=== PATIENT | female | born 1945 | race Caucasian/White ===

== ENCOUNTER 2017-12-14 10:09 | Inpatient (IN) | payer MEDICARE ==
[2017-12-14] MEDS ORDERED: SODIUM CHLORIDE 0.9% 1,000 ML IV STA (10:33)
[2017-12-14] MEDS ORDERED: RX INFO: IV CONTRAST WAS GIVEN 1 EACH MISC MISCELLANE PRN (10:33)
[2017-12-14] MEDS ORDERED: ACETAMINOPHEN IV (For NPO) 1,000 MG in EMPTY BAG 1 BAG IVPB STA (10:34)
--- NOTE | 2017-12-14 10:36 | ED ---
General Adult HPI - General Chief complaint: Abdominal Pain Stated complaint: right lower abdominal pain Time Seen by Provider: 12/14/17 10:29 Source: patient, RN notes reviewed Mode of arrival: ambulatory Limitations: no limitations - History of Present Illness Initial comments: Patient is a pleasant 72-year-old female presenting to the emergency department with abdominal discomfort. Onset was yesterday afternoon. Symptoms have progressively worsened since that time. Discomfort did start in the periumbilical region however now more in his right lower quadrant. Patient has loss of appetite. No nausea or vomiting. Patient does feel somewhat warm. No history of some her symptoms previously. No constipation or diarrhea. No dysuria or hematuria. Patient states positions do not change the discomfort. Patient states walking and bumps during car ride did bother her. - Related Data Home Medications Medication Instructions Recorded Confirmed Acetaminophen [Tylenol] 325 mg PO HS PRN 11/17/15 12/14/17 Aspirin [Adult Low Dose Aspirin EC] 162 mg PO DAILY 11/17/15 12/14/17 Budesonide [Pulmicort] 0.25 mg INHALATION RT-DAILY 11/17/15 12/14/17 Famotidine 40 mg PO HS 11/17/15 12/14/17 Loratadine [Claritin] 10 mg PO QAM 11/17/15 12/14/17 Multivitamins, Thera [Multivitamin] 1 tab PO DAILY 11/17/15 12/14/17 Zafirlukast [Accolate] 20 mg PO QAM 11/17/15 12/14/17 diphenhydrAMINE [Benadryl] 25 mg PO HS PRN 11/17/15 12/14/17 Calcium Carbonate/Vitamin D3 1 tab PO DAILY 12/14/17 12/14/17 [Calcium 500-Vit D3 200 Tablet] Allergies Allergy/AdvReac Type Severity Reaction Status Date / Time egg Allergy Rash/Hives Verified 12/14/17 11:30 naproxen Allergy Rash/Hives. Verified 12/14/17 11:30 SNYCOPE. VOMITING. peanut Allergy Rash/Hives Verified 12/14/17 11:30 Penicillins Allergy Rash/Hives Verified 12/14/17 11:30 strawberry Allergy Rash/Hives Verified 12/14/17 11:30 tomato Allergy Rash/Hives Verified 12/14/17 11:30 Review of Systems ROS Statement: Those systems with pertinent positive or pertinent negative responses have been documented in the HPI. ROS Other: All systems not noted in ROS Statement are negative. Constitutional: Reports: other (Patient feels warm) Eyes: Denies: eye pain ENT: Denies: ear pain Respiratory: Denies: cough Cardiovascular: Denies: chest pain Endocrine: Denies: fatigue Gastrointestinal: Reports: abdominal pain. Denies: nausea, vomiting, diarrhea, constipation Genitourinary: Denies: dysuria, hematuria Musculoskeletal: Denies: back pain Skin: Denies: rash Neurological: Reports: headache (Patient admits she does have a mild headache.) Past Medical History Past Medical History: Asthma, Cancer, COPD, Osteoarthritis (OA) Additional Past Medical History / Comment(s): BREAST CANCER LEFT. ALLERGIES History of Any Multi-Drug Resistant Organisms: None Reported Past Surgical History: Breast Surgery, Tonsillectomy Additional Past Surgical History / Comment(s): LEFT LUMPECTOMY. SINUS SURGERY. Past Anesthesia/Blood Transfusion Reactions: No Reported Reaction Past Psychological History: No Psychological Hx Reported Smoking Status: Never smoker Past Alcohol Use History: Rare Past Drug Use History: None Reported General Exam Limitations: no limitations General appearance: alert, in no apparent distress Head exam: Present: atraumatic Eye exam: Present: normal appearance, PERRL ENT exam: Present: normal oropharynx Neck exam: Present: normal inspection. Absent: meningismus Respiratory exam: Present: normal lung sounds bilaterally Cardiovascular Exam: Present: regular rate, normal rhythm GI/Abdominal exam: Present: soft, tenderness (Moderate tenderness right lower quadrant. Mild tenderness in the suprapubic and periumbilical region.), normal bowel sounds. Absent: distended, guarding, rebound, rigid, pulsatile mass Extremities exam: Present: normal inspection Neurological exam: Present: alert Psychiatric exam: Present: normal affect, normal mood Skin exam: Present: normal color Course Vital Signs 12/14/17 12/14/17 10:20 11:21 Temperature 99.6 F Pulse Rate 87 76 Respiratory 18 18 Rate Blood Pressure 144/67 126/68 O2 Sat by Pulse 98 100 Oximetry - Reevaluation(s) Reevaluation #1: 12/14/17 12:36 Patient does not meet sepsis criteria EKG Findings - EKG Comments: EKG Findings:: EKG shows normal sinus rhythm 76. MO 174. QRS 88. QT 384. QTC 432. Normal axis. Normal QRS. No acute ST change. Medical Decision Making - Medical Decision Making Patient reevaluated and resting comfortably in bed. Patient was updated on results and plan. Case was discussed in detail with Dr. Amaral, who will admit for Dr. Torre. He does request antibiotics. - Lab Data Result diagrams: 12/14/17 10:45 12/14/17 10:45 Lab Results 12/14/17 12/14/17 12/14/17 Range/Units 10:45 10:45 10:45 WBC 13.4 H (3.8-10.6) k/uL RBC 4.43 (3.80-5.40) m/uL Hgb 13.1 (11.4-16.0) gm/dL Hct 39.5 (34.0-46.0) % MCV 89.4 (80.0-100.0) fL MCH 29.6 (25.0-35.0) pg MCHC 33.2 (31.0-37.0) g/dL RDW 12.6 (11.5-15.5) % Plt Count 216 (150-450) k/uL Neutrophils % 77 % Lymphocytes % 16 % Monocytes % 5 % Eosinophils % 1 % Basophils % 0 % Neutrophils # 10.2 H (1.3-7.7) k/uL Lymphocytes # 2.1 (1.0-4.8) k/uL Monocytes # 0.7 (0-1.0) k/uL Eosinophils # 0.2 (0-0.7) k/uL Basophils # 0.0 (0-0.2) k/uL PT (9.0-12.0) sec INR (<1.2) APTT (22.0-30.0) sec Sodium 140 (137-145) mmol/L Potassium 3.8 (3.5-5.1) mmol/L Chloride 105 (98-107) mmol/L Carbon Dioxide 27 (22-30) mmol/L Anion Gap 8 mmol/L BUN 14 (7-17) mg/dL Creatinine 0.80 (0.52-1.04) mg/dL Est GFR (MDRD) Af Amer >60 (>60 ml/min/1.73 sqM) Est GFR (MDRD) Non-Af >60 (>60 ml/min/1.73 sqM) Glucose 108 H (74-99) mg/dL Plasma Lactic Acid Danny (0.7-2.0) mmol/L Calcium 8.9 (8.4-10.2) mg/dL Total Bilirubin 0.9 (0.2-1.3) mg/dL AST 18 (14-36) U/L ALT 35 (9-52) U/L Alkaline Phosphatase 55 (38-126) U/L Total Protein 6.1 L (6.3-8.2) g/dL Albumin 3.6 (3.5-5.0) g/dL Amylase 40 (30-110) U/L Lipase 35 (23-300) U/L Urine Color Urine Appearance (Clear) Urine pH (5.0-8.0) Ur Specific [place] (1.001-1.035) Urine Protein (Negative) Urine Glucose (UA) (Negative) Urine Ketones (Negative) Urine Blood (Negative) Urine Nitrite (Negative) Urine Bilirubin (Negative) Urine Urobilinogen (<2.0) mg/dL Ur Leukocyte Esterase (Negative) Influenza Type A RNA Not Detected (Not Detectd) Influenza Type B (PCR) Not Detected (Not Detectd) 12/14/17 12/14/17 12/14/17 Range/Units 10:45 10:45 10:45 WBC (3.8-10.6) k/uL RBC (3.80-5.40) m/uL Hgb (11.4-16.0) gm/dL Hct (34.0-46.0) % MCV (80.0-100.0) fL MCH (25.0-35.0) pg MCHC (31.0-37.0) g/dL RDW (11.5-15.5) % Plt Count (150-450) k/uL Neutrophils % % Lymphocytes % % Monocytes % % Eosinophils % % Basophils % % Neutrophils # (1.3-7.7) k/uL Lymphocytes # (1.0-4.8) k/uL Monocytes # (0-1.0) k/uL Eosinophils # (0-0.7) k/uL Basophils # (0-0.2) k/uL PT 10.7 (9.0-12.0) sec INR 1.1 (<1.2) APTT 24.1 (22.0-30.0) sec Sodium (137-145) mmol/L Potassium (3.5-5.1) mmol/L Chloride (98-107) mmol/L Carbon Dioxide (22-30) mmol/L Anion Gap mmol/L BUN (7-17) mg/dL Creatinine (0.52-1.04) mg/dL Est GFR (MDRD) Af Amer (>60 ml/min/1.73 sqM) Est GFR (MDRD) Non-Af (>60 ml/min/1.73 sqM) Glucose (74-99) mg/dL Plasma Lactic Acid Danny 0.8 (0.7-2.0) mmol/L Calcium (8.4-10.2) mg/dL Total Bilirubin (0.2-1.3) mg/dL AST (14-36) U/L ALT (9-52) U/L Alkaline Phosphatase (38-126) U/L Total Protein (6.3-8.2) g/dL Albumin (3.5-5.0) g/dL Amylase (30-110) U/L Lipase (23-300) U/L Urine Color Yellow Urine Appearance Clear (Clear) Urine pH 6.5 (5.0-8.0) Ur Specific [place] 1.016 (1.001-1.035) Urine Protein Negative (Negative) Urine Glucose (UA) Negative (Negative) Urine Ketones Negative (Negative) Urine Blood Negative (Negative) Urine Nitrite Negative (Negative) Urine Bilirubin Negative (Negative) Urine Urobilinogen <2.0 (<2.0) mg/dL Ur Leukocyte Esterase Negative (Negative) Influenza Type A RNA (Not Detectd) Influenza Type B (PCR) (Not Detectd) - Radiology Data Radiology results: report reviewed (Computed tomography scan concerning for appendicitis.) Disposition Clinical Impression: Acute appendicitis Disposition: ADMITTED IP TO THIS [facility] Referrals: Ck Rodrigues MD [Primary Care Provider] - 1-2 days Decision Time: 12:36
[2017-12-14 11:03] LABS: Basophils % (A) 0 %; Eosinophils # (A) 0.2 k/uL (0-0.7); Eosinophils % (A) 1 %; HCT 39.5 % (34.0-46.0); HGB 13.1 gm/dL (11.4-16.0); Lymphocytes # (A) 2.1 k/uL (1.0-4.8); Lymphocytes % (A) 16 %; MCH 29.6 pg (25.0-35.0); MCHC 33.2 g/dL (31.0-37.0); MCV 89.4 fL (80.0-100.0); Mean Platelet Volume 6.9; Monocytes # (A) 0.7 k/uL (0-1.0); Monocytes % (A) 5 %; Neutrophils # (A) 10.2 k/uL (1.3-7.7); Neutrophils % (A) 77 %; Platelet Count 216 k/uL (150-450); RBC 4.43 m/uL (3.80-5.40); RDW 12.6 % (11.5-15.5); WBC 13.4 k/uL (3.8-10.6)
[2017-12-14 11:04] LABS: Appearance,Urine Clear (Clear); Bilirubin,Urine Negative (Negative); Blood,Urine Negative (Negative); Color,Urine Yellow; Glucose,Urine (UA) Negative (Negative); Ketones,Urine Negative (Negative); Leukocyte Esterase,Urine Negative (Negative); Nitrite,Urine Negative (Negative); PH, Urine 6.5 (5.0-8.0); Protein,Urine Negative (Negative); Specific Gravity,Urine 1.016 (1.001-1.035); Urobilinogen,Urine <2.0 mg/dL (<2.0)
[2017-12-14 11:16] LABS: ALT 35 U/L (9-52); AST 18 U/L (14-36); Albumin 3.6 g/dL (3.5-5.0); Alkaline Phosphatase 55 U/L (38-126); Amylase 40 U/L (30-110); Anion Gap 8 mmol/L; Blood Urea Nitrogen 14 mg/dL (7-17); Calcium 8.9 mg/dL (8.4-10.2); Carbon Dioxide 27 mmol/L (22-30); Chloride 105 mmol/L (98-107); Glucose 108 mg/dL (74-99); Lipase 35 U/L (23-300); Potassium 3.8 mmol/L (3.5-5.1); Sodium 140 mmol/L (137-145); Total Bilirubin 0.9 mg/dL (0.2-1.3); Total Protein 6.1 g/dL (6.3-8.2)
[2017-12-14 11:27] LABS: INR 1.1 (<1.2); Partial Thromboplastin Time 24.1 sec (22.0-30.0); Prothrombin Time 10.7 sec (9.0-12.0)
--- NOTE | 2017-12-14 12:03 | CT ---
EXAMINATION TYPE: CT abdomen pelvis w con DATE OF EXAM: 12/14/2017 REFERENCE: NONE HISTORY: abdominal pain HISTORY: Left sided Abdominal pain fro 2 days with fever REFERENCE: NONE CT DLP: 532.1 mGy Automated exposure control for dose reduction was used. TECHNIQUE: Helical acquisition through the abdomen and pelvis was obtained following the oral ingesti on of without Oral Contrast and following intravenous administration of 100 mL of Omnipaque 300. The data was reformatted in axial, coronal and sagittal projections. FINDINGS: Visualized portions of the lungs are clear. There is no pleural or pericardial fluid. The heart is mildly enlarged. Within the abdomen, the liver, spleen and gallbladder are normal. There is a small hiatal hernia. Both adrenal glands appear normal. The pancreas is unremarkable. There is a simple appearing 2.3 cm cyst involving the mid polar region of the right kidney. The left kidney appears normal. There is no significant retroperitoneal, iliac or inguinal adenopathy. The bladder is unremarkable. The uterus and ovaries have a normal appearance. There are scattered diverticula throughout the sigmoid colon. I do not see radiographic evidence of d iverticulitis. The appendix is swollen measuring 9.5 mm. There is adjacent inflammatory change. There is no evidence of perforation or abscess formation. There is evidence of mucosal thickening in the sigmoid colon an d also areas within the descending colon. Small bowel loops are normal in caliber. There is no free fluid and no free air identified. IMPRESSION: 1. FINDINGS MOST CONSISTENT WITH ACUTE APPENDICITIS. 2. UNCOMPLICATED DIVERTICULAR CHANGE INVOLVING THE SIGMOID COLON. 3. AREAS OF MUCOSAL THICKENING INVOLVING THE SIGMOID COLON WITH SKIP AREAS IN THE DESCENDING COLON. P LEASE CORRELATE FOR COLITIS. 4. SMALL HIATAL HERNIA. 5. SIMPLE APPEARING RIGHT RENAL CYST.
[2017-12-14] MEDS ORDERED: ONDANSETRON 4 MG/2 ML VIAL IVP PRN (12:36)
[2017-12-14] MEDS ORDERED: MORPHINE SULFATE 4 MG/ML SYRINGE IV PRN (12:36)
[2017-12-14] MEDS ORDERED: NALOXONE 0.4 MG/ML 1 ML VIAL IV PRN (12:36)
[2017-12-14] MEDS: LEVOFLOXACIN 750MG-D5W PMX 750 MG in DEXTROSE/WATER 1 150ML.BAG IVPB SCH (13:29)
[2017-12-14] MEDS: metroNIDAZOLE-NS PMX 500 MG in SALINE 1 100ML.BAG IVPB SCH ×2 (15:02→23:16)
[2017-12-14] MEDS ORDERED: ACETAMINOPHEN TAB 325 MG TAB PO PRN (17:58)
[2017-12-14] MEDS: SODIUM CHLORIDE 0.9% 1,000 ML IV SCH ×2 (23:16→23:20)
[2017-12-15] MEDS ORDERED: BUPIVACAINE (PF) 0.25% 30 ML VIAL SQ ONE (07:13)
[2017-12-15] MEDS ORDERED: MIDAZOLAM 2 MG/2 ML VIAL ONE (07:17)
[2017-12-15] MEDS ORDERED: fentaNYL (PF) 50 MCG/ML 2 ML AMP ONE (07:17)
[2017-12-15] MEDS ORDERED: IV FLUID CONTINUATION 300 ML IV ONE (07:17)
[2017-12-15] MEDS ORDERED: PROPOFOL 10 MG/ML 20 ML VIAL IV ONE (07:17)
[2017-12-15] MEDS ORDERED: HEPARIN SODIUM,PORCINE 5,000 UNIT/ML 1 ML VIAL ONE (07:17)
[2017-12-15] MEDS ORDERED: ROCURONIUM BROMIDE 10 MG/ML 10 ML VIAL IV ONE (07:17)
[2017-12-15] MEDS ORDERED: DEXAMETHASONE SOD PHOS (MDV) 100 MG/10 ML VIAL ONE (07:17)
[2017-12-15] MEDS ORDERED: KETOROLAC 30 MG/ML 1 ML VIAL ONE (07:17)
[2017-12-15] MEDS ORDERED: ONDANSETRON 4 MG/2 ML VIAL ONE (07:17)
[2017-12-15] MEDS ORDERED: SUCCINYLCHOLINE CHLORIDE 100 MG/5 ML SYR IV ONE (07:17)
--- NOTE | 2017-12-15 07:19 | P.GSHP ---
History of Present Illness H&P Date: 12/14/17 Chief Complaint: Right lower quadrant pain This a 72-year-old female who who was admitted through the emergency room with complaints of right lower quadrant pain. Patient was found have acute appendicitis. Patient admitted for laparoscopic appendectomy Past Medical History Past Medical History: Asthma, Cancer, COPD, Osteoarthritis (OA) Additional Past Medical History / Comment(s): BREAST CANCER LEFT. ALLERGIES History of Any Multi-Drug Resistant Organisms: None Reported Past Surgical History: Breast Surgery, Tonsillectomy Additional Past Surgical History / Comment(s): LEFT LUMPECTOMY. SINUS SURGERY. Past Anesthesia/Blood Transfusion Reactions: No Reported Reaction Past Psychological History: No Psychological Hx Reported Smoking Status: Never smoker Past Alcohol Use History: Rare Past Drug Use History: None Reported Medications and Allergies Home Medications Medication Instructions Recorded Confirmed Type Acetaminophen [Tylenol] 325 mg PO HS PRN 11/17/15 12/14/17 History Aspirin [Adult Low Dose Aspirin EC] 162 mg PO DAILY 11/17/15 12/14/17 History Budesonide [Pulmicort] 0.25 mg INHALATION RT-DAILY 11/17/15 12/14/17 History Famotidine 40 mg PO HS 11/17/15 12/14/17 History Loratadine [Claritin] 10 mg PO QAM 11/17/15 12/14/17 History Multivitamins, Thera [Multivitamin] 1 tab PO DAILY 11/17/15 12/14/17 History Zafirlukast [Accolate] 20 mg PO QAM 11/17/15 12/14/17 History diphenhydrAMINE [Benadryl] 25 mg PO HS PRN 11/17/15 12/14/17 History Calcium Carbonate/Vitamin D3 1 tab PO DAILY 12/14/17 12/14/17 History [Calcium 500-Vit D3 200 Tablet] Allergies Allergy/AdvReac Type Severity Reaction Status Date / Time egg Allergy Rash/Hives Verified 12/14/17 11:30 naproxen Allergy Rash/Hives. Verified 12/14/17 11:30 SNYCOPE. VOMITING. peanut Allergy Rash/Hives Verified 12/14/17 11:30 Penicillins Allergy Rash/Hives Verified 12/14/17 11:30 strawberry Allergy Rash/Hives Verified 12/14/17 11:30 tomato Allergy Rash/Hives Verified 12/14/17 11:30 Surgical - Exam Vital Signs Temp Pulse Resp BP Pulse Ox 99.6 F 87 18 144/67 98 12/14/17 10:20 12/14/17 10:20 12/14/17 10:20 12/14/17 10:20 12/14/17 10:20 - General well developed, no distress - Eyes PERRL - ENT normal pinna - Neck no masses - Respiratory normal expansion - Cardiovascular Rhythm: regular - Abdomen Mild right lower quadrant tenderness Abdomen: soft Results - Labs 12/14/17 10:45 12/14/17 10:45 Abnormal Lab Results - Last 24 Hours (Table) 12/14/17 12/14/17 Range/Units 10:45 10:45 WBC 13.4 H (3.8-10.6) k/uL Neutrophils # 10.2 H (1.3-7.7) k/uL Glucose 108 H (74-99) mg/dL Total Protein 6.1 L (6.3-8.2) g/dL Diabetes panel 12/14/17 Range/Units 10:45 Sodium 140 (137-145) mmol/L Potassium 3.8 (3.5-5.1) mmol/L Chloride 105 (98-107) mmol/L Carbon Dioxide 27 (22-30) mmol/L BUN 14 (7-17) mg/dL Creatinine 0.80 (0.52-1.04) mg/dL Glucose 108 H (74-99) mg/dL Calcium 8.9 (8.4-10.2) mg/dL AST 18 (14-36) U/L ALT 35 (9-52) U/L Alkaline Phosphatase 55 (38-126) U/L Total Protein 6.1 L (6.3-8.2) g/dL Albumin 3.6 (3.5-5.0) g/dL Calcium panel 12/14/17 Range/Units 10:45 Calcium 8.9 (8.4-10.2) mg/dL Albumin 3.6 (3.5-5.0) g/dL Pituitary panel 12/14/17 Range/Units 10:45 Sodium 140 (137-145) mmol/L Potassium 3.8 (3.5-5.1) mmol/L Chloride 105 (98-107) mmol/L Carbon Dioxide 27 (22-30) mmol/L BUN 14 (7-17) mg/dL Creatinine 0.80 (0.52-1.04) mg/dL Glucose 108 H (74-99) mg/dL Calcium 8.9 (8.4-10.2) mg/dL Adrenal panel 12/14/17 Range/Units 10:45 Sodium 140 (137-145) mmol/L Potassium 3.8 (3.5-5.1) mmol/L Chloride 105 (98-107) mmol/L Carbon Dioxide 27 (22-30) mmol/L BUN 14 (7-17) mg/dL Creatinine 0.80 (0.52-1.04) mg/dL Glucose 108 H (74-99) mg/dL Calcium 8.9 (8.4-10.2) mg/dL Total Bilirubin 0.9 (0.2-1.3) mg/dL AST 18 (14-36) U/L ALT 35 (9-52) U/L Alkaline Phosphatase 55 (38-126) U/L Total Protein 6.1 L (6.3-8.2) g/dL Albumin 3.6 (3.5-5.0) g/dL Assessment and Plan Assessment: Acute appendicitis. We'll perform laparoscopic appendectomy
[2017-12-15] MEDS ORDERED: HYDROmorphone 0.5 MG/0.5 ML SYRINGE IVP PRN (07:56)
[2017-12-15] MEDS ORDERED: ONDANSETRON 4 MG/2 ML VIAL IVP PRN (07:56)
[2017-12-15] MEDS ORDERED: KETOROLAC 30 MG/ML 1 ML VIAL IVP PRN (07:56)
[2017-12-15] MEDS ORDERED: BENZOCAINE/MENTHOL LOZENG 1 EACH LOZENGE MUCOUS MEM PRN (07:56)
[2017-12-15] MEDS ORDERED: LACTATED RINGERS 1,000 ML IV ONE (07:58)
--- NOTE | 2017-12-15 08:00 | P.OP ---
Date of Procedure: 12/15/17 Preoperative Diagnosis: Acute appendicitis Postoperative Diagnosis: Acute appendicitis Procedure(s) Performed: Laparoscopic appendectomy Anesthesia: GETA Estimated Blood Loss (ml): 5 Pathology: other (Appendix) Condition: stable Disposition: PACU Description of Procedure: Harmonic appendectomy
[2017-12-15] MEDS: D5-0.45% NACL WITH KCL 20MEQ/L 1,000 ML IV SCH ×3 (09:44→21:31)
[2017-12-15] MEDS: metroNIDAZOLE-NS PMX 500 MG in SALINE 1 100ML.BAG IVPB SCH ×3 (09:44→23:24)
[2017-12-15] MEDS: HEPARIN SODIUM,PORCINE 5,000 UNIT/ML 1 ML VIAL SQ SCH ×3 (09:45→23:35)
[2017-12-15] MEDS: PANTOPRAZOLE 40 MG/10 ML VIAL IV SCH (09:48)
[2017-12-15] MEDS ORDERED: diphenhydrAMINE 25 MG CAP PO PRN (09:49)
[2017-12-15] MEDS ORDERED: ACETAMINOPHEN TAB 325 MG TAB PO PRN (09:49)
--- NOTE | 2017-12-15 10:01 | P.HPIM ---
History of Present Illness H&P Date: 12/15/17 Chief Complaint: Abdominal pain Kemi Vaughan is a 72-year-old female, patient of Dr Rodrigues presenting to the emergency department with abdominal discomfort. Onset was on Saturday afternoon. Symptoms have progressively worsened since that time. Discomfort did start in the periumbilical region however now more in his right lower quadrant. Patient has loss of appetite. No nausea or vomiting. Patient does feel somewhat warm. No history of same symptoms previously. No constipation or diarrhea. No frequency with urination no burning or urgency. Patient was evaluated in emergency room, white blood count was elevated at 13.4 computed tomography scan was compatible with acute appendicitis patient was seen by Dr. Ramírez and underwent laparoscopic appendectomy. Past Medical History Past Medical History: Asthma, Cancer, COPD, Osteoarthritis (OA) Additional Past Medical History / Comment(s): BREAST CANCER LEFT. ALLERGIES History of Any Multi-Drug Resistant Organisms: None Reported Past Surgical History: Breast Surgery, Tonsillectomy Additional Past Surgical History / Comment(s): LEFT LUMPECTOMY. SINUS SURGERY. Past Anesthesia/Blood Transfusion Reactions: No Reported Reaction Past Psychological History: No Psychological Hx Reported Smoking Status: Never smoker Past Alcohol Use History: Rare Past Drug Use History: None Reported Medications and Allergies Home Medications Medication Instructions Recorded Confirmed Type Acetaminophen [Tylenol] 325 mg PO HS PRN 11/17/15 12/14/17 History Aspirin [Adult Low Dose Aspirin EC] 162 mg PO DAILY 11/17/15 12/14/17 History Budesonide [Pulmicort] 0.25 mg INHALATION RT-DAILY 11/17/15 12/14/17 History Famotidine 40 mg PO HS 11/17/15 12/14/17 History Loratadine [Claritin] 10 mg PO QAM 11/17/15 12/14/17 History Multivitamins, Thera [Multivitamin] 1 tab PO DAILY 11/17/15 12/14/17 History Zafirlukast [Accolate] 20 mg PO QAM 11/17/15 12/14/17 History diphenhydrAMINE [Benadryl] 25 mg PO HS PRN 11/17/15 12/14/17 History Calcium Carbonate/Vitamin D3 1 tab PO DAILY 12/14/17 12/14/17 History [Calcium 500-Vit D3 200 Tablet] Allergies Allergy/AdvReac Type Severity Reaction Status Date / Time egg Allergy Rash/Hives Verified 12/14/17 11:30 naproxen Allergy Rash/Hives. Verified 12/14/17 11:30 SNYCOPE. VOMITING. peanut Allergy Rash/Hives Verified 12/14/17 11:30 Penicillins Allergy Rash/Hives Verified 12/14/17 11:30 strawberry Allergy Rash/Hives Verified 12/14/17 11:30 tomato Allergy Rash/Hives Verified 12/14/17 11:30 Physical Exam Vitals: Vital Signs Temp Pulse Pulse Pulse Resp BP BP 12/15/17 09:00 97.9 F 74 16 124/67 12/15/17 08:45 61 16 108/57 12/15/17 08:35 61 16 115/57 12/15/17 08:20 63 16 117/58 12/15/17 08:05 97.6 F 68 20 128/62 12/15/17 08:00 74 16 12/15/17 00:00 16 12/14/17 23:00 97.8 F 83 16 132/68 12/14/17 16:00 75 16 12/14/17 14:17 99.0 F 75 16 134/66 12/14/17 13:31 99.0 F 70 20 120/63 12/14/17 11:21 76 18 126/68 12/14/17 10:20 99.6 F 87 18 144/67 Pulse Ox 12/15/17 09:00 99 12/15/17 08:45 99 12/15/17 08:35 99 12/15/17 08:20 97 12/15/17 08:05 95 12/15/17 08:00 12/15/17 00:00 12/14/17 23:00 95 12/14/17 16:00 12/14/17 14:17 94 L 12/14/17 13:31 98 12/14/17 11:21 100 12/14/17 10:20 98 Intake and Output 12/14/17 12/15/17 12/15/17 22:59 06:59 14:59 Intake Total 1660 980 600 Output Total 2 Balance 1660 980 598 Intake: IV 600 Intake, IV Titration 980 Amount Sodium Chloride 0.9% 1, 880 000 ml @ 110 mls/hr IV . Q9H6M [facility] Rx#:[id number]-NS PMX 500 100 mg In Saline 1 100ml.bag @ 100 mls/hr IVPB Q8HR [facility] Rx#:[id number] Oral 1660 Output: Estimated Blood Loss 2 Other: Voiding Method Toilet Toilet Toilet # Voids 2 1 Patient was seen and examined postoperatively she is alert and oriented 3 in no apparent distress HEENT head normocephalic and atraumatic Neck is supple no JVD no goiter no lymphadenopathy Chest exam is clear to auscultation no crackles no wheezing Cardiac exam reveals regular heart sounds S1 and S2 no gallops no murmurs Abdomen is soft with mild tenderness in the right lower quadrant no organomegaly with normal bowel sounds Extremity exam reveals no edema no cyanosis or clubbing Results CBC & Chem 7: 12/14/17 10:45 12/14/17 10:45 Labs: Abnormal Lab Results - Last 24 Hours (Table) 12/14/17 12/14/17 Range/Units 10:45 10:45 WBC 13.4 H (3.8-10.6) k/uL Neutrophils # 10.2 H (1.3-7.7) k/uL Glucose 108 H (74-99) mg/dL Total Protein 6.1 L (6.3-8.2) g/dL Thrombosis Risk Factor Assmnt - Choose All That Apply Each Factor Represents 1 point: Age 41-60 years Each Risk Factor Represents 2 Points: Age 61-74 years Thrombosis Risk Factor Assessment Total Risk Factor Score: 3 Thrombosis Risk Factor Assessment Level: Moderate Risk Assessment and Plan Plan: #1 acute appendicitis status post laparoscopic appendectomy currently patient is stable postoperatively she is maintained on IV antibiotics Levaquin and Flagyl will monitor closely and recheck labs in a.m. #2 underlying history of asthma maintained on Pulmicort and Accolate will resume. #3 for DVT prophylaxis she is maintained on SCD stockings, for GI prophylaxis she is maintained on Protonix Will continue current management will follow closely during this hospitalization
[2017-12-15] MEDS: SODIUM CHLORIDE 0.9% 1,000 ML IV SCH ×2 (15:23→16:07)
[2017-12-15] MEDS: LEVOFLOXACIN 750MG-D5W PMX 750 MG in DEXTROSE/WATER 1 150ML.BAG IVPB SCH (17:10)
[2017-12-15] MEDS ORDERED: MONTELUKAST 10 MG TAB PO SCH (21:00)
[2017-12-16] MEDS: SODIUM CHLORIDE 0.9% 1,000 ML IV SCH (05:37)
[2017-12-16 07:07] LABS: Basophils % (A) 0 %; Eosinophils % (A) 0 %; HCT 33.8 % (34.0-46.0); HGB 10.7 gm/dL (11.4-16.0); Lymphocytes % (A) 9 %; MCH 29.6 pg (25.0-35.0); MCHC 31.6 g/dL (31.0-37.0); MCV 93.6 fL (80.0-100.0); Mean Platelet Volume 7.7; Monocytes # (A) 0.6 k/uL (0-1.0); Monocytes % (A) 6 %; Neutrophils # (A) 8.6 k/uL (1.3-7.7); Neutrophils % (A) 84 %; Platelet Count 163 k/uL (150-450); RBC 3.61 m/uL (3.80-5.40); RDW 12.4 % (11.5-15.5); WBC 10.3 k/uL (3.8-10.6)
[2017-12-16 07:32] LABS: ALT 28 U/L (9-52); AST 13 U/L (14-36); Albumin 2.8 g/dL (3.5-5.0); Alkaline Phosphatase 54 U/L (38-126); Anion Gap 8 mmol/L; Blood Urea Nitrogen 12 mg/dL (7-17); Calcium 8.4 mg/dL (8.4-10.2); Carbon Dioxide 23 mmol/L (22-30); Chloride 103 mmol/L (98-107); Glucose 141 mg/dL (74-99); Potassium 4.4 mmol/L (3.5-5.1); Sodium 134 mmol/L (137-145); Total Bilirubin 0.4 mg/dL (0.2-1.3); Total Protein 5.2 g/dL (6.3-8.2)
[2017-12-16 07:37] VITALS: RESP 16
[2017-12-16 07:39] VITALS: BP 137/71; PULSE 57; TEMP 96.9
[2017-12-16] MEDS ORDERED: BUDESONIDE 0.25 MG/2 ML NEBU INHALATION SCH (08:00)
[2017-12-16] MEDS: HEPARIN SODIUM,PORCINE 5,000 UNIT/ML 1 ML VIAL SQ SCH (08:53)
[2017-12-16] MEDS: metroNIDAZOLE-NS PMX 500 MG in SALINE 1 100ML.BAG IVPB SCH (08:53)
[2017-12-16] MEDS: PANTOPRAZOLE 40 MG/10 ML VIAL IV SCH (08:54)
[2017-12-16] MEDS ORDERED: LORATADINE 10 MG TAB PO SCH (09:00)
[2017-12-16] MEDS ORDERED: ASPIRIN 81 MG PO SCH (09:00)
[2017-12-16] MEDS: D5-0.45% NACL WITH KCL 20MEQ/L 1,000 ML IV SCH (09:27)
--- NOTE | 2017-12-16 11:01 | P.PN ---
Subjective Progress Note Date: 12/16/17 Acute appendicitis status post laparoscopic appendectomy Patient is tolerating diet. She denies any chest pain or shortness of breath. Denies any nausea or vomiting. No bowel movement yet. has not passed gas. Denies any burning with urination or difficulty urinating. Anticipating discharge today Objective - Vital Signs Vital signs: Vital Signs Temp 96.9 F L 12/16/17 07:00 Pulse 64 12/16/17 07:29 Resp 16 12/16/17 07:29 BP 137/71 12/16/17 07:00 Pulse Ox 98 12/16/17 07:19 Intake & Output 12/15/17 12/16/17 12/16/17 18:59 06:59 18:59 Intake Total 600 Output Total 502 Balance 98 Intake: IV 600 Output: Urine 500 Estimated Blood Loss 2 Other: Voiding Method Toilet Toilet # Voids 1 1 - Exam Head normocephalic Neck supple Lungs clear to auscultation bilaterally no wheezing or crackles Heart regular rate and rhythm S1-S2, no rub or gallop Abdomen is soft nontender nondistended positive bowel sounds no hepatosplenomegaly Extremities no edema Neuro alert and orientated to 3 - Labs CBC & Chem 7: 12/16/17 06:47 12/16/17 06:47 Labs: Abnormal Lab Results - Last 24 Hours (Table) 12/16/17 12/16/17 Range/Units 06:47 06:47 RBC 3.61 L (3.80-5.40) m/uL Hgb 10.7 L (11.4-16.0) gm/dL Hct 33.8 L (34.0-46.0) % Neutrophils # 8.6 H (1.3-7.7) k/uL Sodium 134 L (137-145) mmol/L Glucose 141 H (74-99) mg/dL AST 13 L (14-36) U/L Total Protein 5.2 L (6.3-8.2) g/dL Albumin 2.8 L (3.5-5.0) g/dL Microbiology - Last 24 Hours (Table) 12/14/17 13:20 Blood Culture - Preliminary Blood No Growth after 24 hours 12/14/17 10:45 Blood Culture - Preliminary Blood No Growth after 24 hours Assessment and Plan Assessment: #1 acute appendicitis status post laparoscopic appendectomy currently patient is stable postoperatively she is maintained on IV antibiotics Levaquin and Flagyl will monitor closely and recheck labs in a.m. #2 underlying history of asthma maintained on Pulmicort and Accolate will resume. #3 for DVT prophylaxis she is maintained on SCD stockings, for GI prophylaxis she is maintained on Protonix Patient is medically stable for discharge. Her follow-up with Dr. Rodrigues in 1 week I performed an examination of the patient and discussed their management with the physician Circular Knitter. I have reviewed the Physician Circular Knitter's notes and agree with the documented findings and plan of care
--- NOTE | 2017-12-16 11:21 | P.DS ---
Providers Date of admission: 12/14/17 12:37 Expected date of discharge: 12/16/17 Attending physician: Carl Ramírez Consults: 12/15/17 08:32 Consult Physician Routine Consulting Provider: Chase Almonte Consult Reason/Comments: Medical management Do you want consulting provider notified?: Yes Primary care physician: Ck Rodrigues [facility] Course: 72-year-old female whose primary care provider Dr. Rodrigues presented to the emergency room to be evaluated for umbilical pain radiating to the right lower quadrant onset within the last 24 hours. Patient stated there was decrease appetite no nausea vomiting. No prior symptoms. No prior episodes. No constipation no diarrhea no difficulty in urinating. White count in the emergency room 13.4. CAT scan of the abdomen pelvis was compatible with acute appendicitis. Patient underwent a laparoscopic appendectomy by done on December 15 no postop events. Patient did not need to be discharged on antibiotics. Also patient declined offer [place] prescription stated was not having pain did not want to take narcotic would take [id number] Tylenol or Motrin if needed Impression discharge diagnosis Present on admission right lower quadrant abdominal pain radiating to the umbilical area suspect due to acute appendicitis Status post laparoscopic appendectomy for acute appendicitis The above impression and plan of care have been discussed and directed by signing physician. Lupe Eric nurse practitioner acting as scribe for signing physician. Plan - Discharge Summary New Discharge Prescriptions: Continue diphenhydrAMINE [Benadryl] 25 mg PO HS PRN PRN Reason: Insomnia Zafirlukast [Accolate] 20 mg PO QAM Multivitamins, Thera [Multivitamin (formulary)] 1 tab PO DAILY Loratadine [Claritin] 10 mg PO QAM Famotidine 40 mg PO HS Budesonide [Pulmicort] 0.25 mg INHALATION RT-DAILY Aspirin [Adult Low Dose Aspirin EC] 162 mg PO DAILY Acetaminophen [Tylenol] 325 mg PO HS PRN PRN Reason: RESTLESS LEGS Calcium Carbonate/Vitamin D3 [Calcium 500-Vit D3 200 Tablet] 1 tab PO DAILY Discharge Medication List Acetaminophen [Tylenol] 325 mg PO HS PRN 11/17/15 [History] Aspirin [Adult Low Dose Aspirin EC] 162 mg PO DAILY 11/17/15 [History] Budesonide [Pulmicort] 0.25 mg INHALATION RT-DAILY 11/17/15 [History] Famotidine 40 mg PO HS 11/17/15 [History] Loratadine [Claritin] 10 mg PO QAM 11/17/15 [History] Multivitamins, Thera [Multivitamin (formulary)] 1 tab PO DAILY 11/17/15 [History ] Zafirlukast [Accolate] 20 mg PO QAM 11/17/15 [History] diphenhydrAMINE [Benadryl] 25 mg PO HS PRN 11/17/15 [History] Calcium Carbonate/Vitamin D3 [Calcium 500-Vit D3 200 Tablet] 1 tab PO DAILY 08/21 [History] Follow up Appointment(s)/Referral(s): Ck Rodrigues MD [Primary Care Provider] - 1 Week Carl Ramírez MD [STAFF PHYSICIAN] - 1 Week Activity/Diet/Wound Care/Special Instructions: No tub bath for six weeks. Shower daily. No lifting over 4 pounds for the next 6 weeks. May use ice packs to surgical site. No driving while taking narcotic for pain.
[2017-12-16] MEDS ORDERED: CALCIUM CARB-VIT D 500MG-200UN 1 EACH TAB PO SCH (12:00)
[2017-12-16] MEDS ORDERED: MULTIVITAMINS, THERA 1 EACH TAB PO SCH (12:00)
== END 2017-12-16 12:24 | disposition home or self-care (01) | DRG 343 ==
LOC: EC 10:09 → 5MS5E 12:37
PROVIDERS: ADMIT Surgery; ATTEND Surgery
PROC: 0DTJ4ZZ Resection of Appendix, Percutaneous Endoscopic Approach (ICD-10-PCS; principal; 2017-12-15 07:00)
DX: K35.80 Unspecified acute appendicitis (principal); J44.9 Chronic obstructive pulmonary disease, unspecified; M19.90 Unspecified osteoarthritis, unspecified site; K21.9 Gastro-esophageal reflux disease without esophagitis; Z85.3 Personal history of malignant neoplasm of breast; Z79.82 Long term (current) use of aspirin; Z79.899 Other long term (current) drug therapy; Z88.6 Allergy status to analgesic agent; Z91.012 Allergy to eggs; Z91.010 Allergy to peanuts; Z88.0 Allergy status to penicillin; Z91.018 Allergy to other foods
CPT/HCPCS: 36415; 74177; 80053; 81003; 82150; 83605; 83690; 85025; 85610; 85730; 87040; 87502; 88304; 93005; 94640; 94760; 96361; 96365; 96375; 99285

== ENCOUNTER → 2018-04-17 | Outpatient (CLI) | payer MEDICARE ==
--- NOTE | 2018-04-17 15:39 | US ---
EXAMINATION TYPE: US venous doppler duplex LE RT DATE OF EXAM: 04/17/2018 3:31 PM COMPARISON: NONE CLINICAL HISTORY: M79.661 Pain In Limb, R22.41 Swelling In Limb. Right thigh deep pain after travelin g on airplane SIDE PERFORMED: Right TECHNIQUE: The lower extremity deep venous system is examined utilizing real time linear array sonog nadya with graded compression, doppler sonography and color-flow sonography. VESSELS IMAGED: Common Femoral Vein Deep Femoral Vein Greater Saphenous Vein * Femoral Vein Popliteal Vein Small Saphenous Vein * Proximal Calf Veins (* superficial vessels) Right Leg: Negative for DVT Grayscale, color doppler, spectral doppler imaging performed of the deep veins of the right lower ext remity. There is normal flow, compressibility, vascular waveforms. IMPRESSION: No ultrasound evidence for acute DVT in the right lower extremity.
== END | disposition home or self-care (01) ==
LOC: RADUSWWP 15:09
PROVIDERS: ATTEND Internal Medicine
DX: M79.661 Pain in right lower leg (principal); R22.41 Localized swelling, mass and lump, right lower limb; M79.651 Pain in right thigh

== ENCOUNTER → 2018-11-26 | Outpatient (CLI) | payer MEDICARE ==
--- NOTE | 2018-11-26 13:45 | US ---
EXAMINATION TYPE: US thyroid st tissue head/neck DATE OF EXAM: 11/26/2018 COMPARISON: NONE CLINICAL HISTORY: R94.6 Abnormal results of thyroid function studies; difficulty swallowing GLAND SIZE: Right Lobe: 4.5 x 2.0 x 1.5 cm Overall Parenchyma: homogenous Left Lobe: 4.3 x 1.5 x 1.2 cm Overall Parenchyma: homogeneous Isthmus Thickness: 0.4 cm NODULES RIGHT: # of nodules measured on right: 3 1. 0.3 X 0.3 x 0.2 cm hypoechoic cystic nodule at the upper pole with well-defined margins. This n odule is wider than tall and shows no intranodular vascularity. 2. 0.5 X 0.4 x 0.3 cm isoechoic mixed nodule at the lower pole with well-defined margins. This nodu le is wider than tall and shows no intranodular vascularity. 3. 0.4 X 0.4 x 0.3 cm hypoechoic mixed nodule at the lower pole with well-defined margins. This no dule is wider than tall and shows no intranodular vascularity. LEFT: # of nodules measured on left: 0 ISTHMUS: # of nodules measured in the isthmus: 0 Bilateral neck scanned: no evidence of lymphadenopathy. IMPRESSION: Nonspecific thyroid nodularity.
== END ==
LOC: RADUSWWP 12:48
PROVIDERS: ATTEND Internal Medicine
DX: R94.6 Abnormal results of thyroid function studies (principal)
CPT/HCPCS: 76536

== ENCOUNTER → 2019-03-02 | Outpatient (CLI) | payer MEDICARE ==
--- NOTE | 2019-03-02 16:52 | US ---
EXAMINATION TYPE: US pelvic complete DATE OF EXAM: 03/02/2019 COMPARISON: CT 2018 CLINICAL HISTORY: 73-year-old female R10.9 Left sided Pelvic pain. Patient c/o LLQ pain (at hip) on a nd off. Not feeling it now. TECHNIQUE: Transabdominal sonographic images of the pelvis were acquired. Date of LMP: Post menopausal. FINDINGS: Uterus: Anteverted measuring 7.1 x 3.0 x 2.1 cm Endometrial Stripe: 0.2 cm, within normal limits. A structure which may represent the Right Ovary: 1.4 x 1.1 x 0.8 cm A structure which may represent Left Ovary: 1.5 x 0.9 x 0.8 cm No evident adnexal abnormality or cul-de-sac free fluid. IMPRESSION: Small rounded structures which may represent the ovaries are visualized. No specific sonographic abno rmality of the pelvis on transabdominal scanning.
--- NOTE | 2019-03-02 16:54 | US ---
EXAMINATION TYPE: US kidneys/renal and bladder DATE OF EXAM: 03/02/2019 COMPARISON: None CLINICAL HISTORY: 73-year-old female R10.9 Left sided Pelvic pain. TECHNIQUE: Multiple sonographic images of the kidneys and bladder are obtained. FINDINGS: EXAM MEASUREMENTS: Right Kidney: 10.1 x 6.1 x 1.5 cm Left Kidney: 10.1 x 5.1 x 5.0 cm Post Void Residual Volume: 22.6 mL Right Kidney: No hydronephrosis. There is a mid pole cyst = 2.1 x 1.8 x 1.8 cm Left Kidney: No hydronephrosis. Bladder: wnl Bilateral Jets seen: Yes Normal Post Void Residual: Yes IMPRESSION: 1. No hydronephrosis. 2. Benign 2.1 cm midpole cyst in the right kidney. 3. Increased postvoid bladder volume of 23 mL still falls within acceptable limits.
== END | disposition home or self-care (01) ==
LOC: RADUSWWP 14:10
PROVIDERS: ATTEND Internal Medicine
DX: N28.1 Cyst of kidney, acquired (principal); R10.2 Pelvic and perineal pain
CPT/HCPCS: 76770; 76856

== ENCOUNTER → 2019-07-09 | Outpatient (CLI) | payer MEDICARE ==
--- NOTE | 2019-07-09 10:12 | BD ---
EXAMINATION TYPE: Axial Bone Density DATE OF EXAM: 07/09/2019 COMPARISON: NONE CLINICAL HISTORY: 74 YR OLD FEMALE... ICD-10 CODE: M89.9 DISORDER OF BONE Height: 60.3 Weight: 150 FRAX RISK QUESTIONS: Glucocorticoids (More than 3mos): YES (Ex: prednisone, prednisolone, methylprednisolone, dexamethasone, and hydrocortisone). RISK FACTORS HISTORY OF: Active: YES Diet low in dairy products/other sources of calcium: YES A BIT Postmenopausal woman: YES AT AGE 55 Take estrogen and/or progesterone medications: YES FOR UNDER 1 YR MEDICATIONS: Prednisone or other steroids: ASTHMA STEROIDS AND INHALERS FOR YRS Thyroid Medications: YES, SYNTHROID, FOR 6 MOS Osteoporosis Medications: TRIED FOSAMAX, 4 MOS, THEN STOPPED Additional Medications: HX OF RADIATION FOR LT BR CANCER, REFLUX MEDS, CALCIUM WITH D, Additional History: LT BREAST LUMPECTOMY, 8 YRS AGO, REFLUX, EXAM MEASUREMENTS: Bone mineral densitometry was performed using the mymxlog System. Bone mineral density as measured about the Lumbar spine is: ----- L1-L4(G/cm2): 0.965 T Score Values are as follows: ----- L1: -1.7 ----- L2: -2.4 ----- L3: -1.4 ----- L4: -1.8 ----- L1-L4: -1.8 Bone mineral density FIRST DEXA STUDY AT [facility] Bone mineral density about the R hip (g/cm2): 0.745 Bone mineral density about the L hip (g/cm2): 0.761 T Score values are as follows: -----R Neck: -2.1 -----L Neck: -2.2 -----R Total: -2.1 -----L Total: -2.0 Bone mineral density FIRST DEXA AT [facility] FRAX%s: THERE IS A 22.3% CHANCE FOR A MAJOR OSTEOPOROTIC FX AND A 1.7% FOR HIP.....PROBABILITY FOR FX IN 10 YRS TIME IMPRESSION: Osteopenia (T Score between -2.5 and -1). There is slightly increased risk of fracture and the patient may be considered for treatment. Re-Screen 2-5 years. NOTE: T-SCORE=SD OF THE YOUNG ADULT MEAN.
== END | disposition home or self-care (01) ==
LOC: RADBDWWP 09:13
PROVIDERS: ATTEND Internal Medicine
DX: M85.80 Other specified disorders of bone density and structure, unspecified site (principal)
CPT/HCPCS: 77080

== ENCOUNTER 2020-07-11 09:46 | Observation (INO) | payer MEDICARE ==
[2020-07-11] MEDS ORDERED: NITROGLYCERIN OINT 1 INCH/GM PACKET TOPICAL STA (10:10)
[2020-07-11] MEDS ORDERED: ASPIRIN 81 MG PO STA (10:10)
--- NOTE | 2020-07-11 10:12 | ED ---
General Adult HPI - General Chief complaint: Chest Pain Stated complaint: chest pain Time Seen by Provider: 07/11/20 09:55 Source: patient, RN notes reviewed Mode of arrival: ambulatory Limitations: no limitations - History of Present Illness Initial comments: Patient is a pleasant 75-year-old female presenting to the emergency Department with chest discomfort. Onset of symptoms was a couple of days ago. Discomfort feels like pressure. Discomfort has been steady. No radiation. No associated dyspnea, nausea, or diaphoresis. Symptoms do worsen a little bit with deep breaths. Symptoms do not appear exertional. No history of similar symptoms p reviously. Discomfort is described as mild. - Related Data Home Medications Medication Instructions Recorded Confirmed Acetaminophen [Tylenol] 325 mg PO HS PRN 11/17/15 12/14/17 Aspirin [Adult Low Dose Aspirin EC] 162 mg PO DAILY 11/17/15 12/14/17 Budesonide [Pulmicort] 0.25 mg INHALATION RT-DAILY 11/17/15 12/14/17 Famotidine 40 mg PO HS 11/17/15 12/14/17 Loratadine [Claritin] 10 mg PO QAM 11/17/15 12/14/17 Multivitamins, Thera [Multivitamin 1 tab PO DAILY 11/17/15 12/14/17 (formulary)] Zafirlukast [Accolate] 20 mg PO QAM 11/17/15 12/14/17 diphenhydrAMINE [Benadryl] 25 mg PO HS PRN 11/17/15 12/14/17 Calcium Carbonate/Vitamin D3 1 tab PO DAILY 12/14/17 12/14/17 [Calcium 500-Vit D3 200 Tablet] Allergies Allergy/AdvReac Type Severity Reaction Status Date / Time egg Allergy Rash/Hives Verified 07/11/20 09:52 naproxen Allergy Rash/Hives. Verified 07/11/20 09:52 SNYCOPE. VOMITING. peanut Allergy Rash/Hives Verified 07/11/20 09:52 Penicillins Allergy Rash/Hives Verified 07/11/20 09:52 strawberry Allergy Rash/Hives Verified 07/11/20 09:52 tomato Allergy Rash/Hives Verified 07/11/20 09:52 Review of Systems ROS Statement: Those systems with pertinent positive or pertinent negative responses have been documented in the HPI. ROS Other: All systems not noted in ROS Statement are negative. Constitutional: Denies: fever Eyes: Denies: eye pain ENT: Denies: ear pain Respiratory: Denies: cough, dyspnea Cardiovascular: Reports: as per HPI, chest pain Endocrine: Denies: fatigue Gastrointestinal: Denies: abdominal pain Genitourinary: Denies: urgency Musculoskeletal: Denies: back pain Skin: Denies: rash Neurological: Denies: weakness Past Medical History Past Medical History: Asthma, Cancer, COPD, Osteoarthritis (OA) Additional Past Medical History / Comment(s): BREAST CANCER LEFT. ALLERGIES History of Any Multi-Drug Resistant Organisms: None Reported Past Surgical History: Appendectomy, Breast Surgery, Tonsillectomy Additional Past Surgical History / Comment(s): LEFT LUMPECTOMY. SINUS SURGERY. Past Anesthesia/Blood Transfusion Reactions: No Reported Reaction Past Psychological History: No Psychological Hx Reported Smoking Status: Never smoker Past Alcohol Use History: Rare Past Drug Use History: None Reported General Exam Limitations: no limitations General appearance: alert, in no apparent distress Head exam: Present: normocephalic Eye exam: Present: normal appearance Neck exam: Present: normal inspection Respiratory exam: Present: normal lung sounds bilaterally. Absent: chest wall tenderness Cardiovascular Exam: Present: regular rate, normal rhythm Expanded Peripheral pulses: 2+: Radial (R), Radial (L), Posterior Tibialis (R), Posterior Tibialis (L), Dorsalis Pedis (R), Dorsalis Pedis (L) GI/Abdominal exam: Present: soft. Absent: tenderness Extremities exam: Present: normal inspection. Absent: pedal edema, calf tenderness Neurological exam: Present: alert Psychiatric exam: Present: normal affect, normal mood Skin exam: Present: normal color Course Vital Signs 07/11/20 07/11/20 09:48 10:46 Temperature 98.1 F Pulse Rate 78 69 Respiratory 18 18 Rate Blood Pressure 177/69 124/85 O2 Sat by Pulse 96 96 Oximetry EKG Findings - EKG Comments: EKG Findings:: Normal sinus rhythm 72. SC 166. QRS 84. QT 378. QTC 413. Normal axis. Normal QRS. No acute ST change. Medical Decision Making - Medical Decision Making Patient reevaluated and updated. Case was discussed with Dr. Almonte, who will admit his patient. - Lab Data Result diagrams: 07/11/20 10:10 07/11/20 10:10 Lab Results 07/11/20 07/11/20 07/11/20 Range/Units 10:10 10:10 10:10 WBC 7.1 (3.8-10.6) k/uL RBC 4.55 (3.80-5.40) m/uL Hgb 13.3 (11.4-16.0) gm/dL Hct 41.3 (34.0-46.0) % MCV 90.8 (80.0-100.0) fL MCH 29.1 (25.0-35.0) pg MCHC 32.1 (31.0-37.0) g/dL RDW 12.7 (11.5-15.5) % Plt Count 271 (150-450) k/uL Neutrophils % 58 % Lymphocytes % 30 % Monocytes % 5 % Eosinophils % 4 % Basophils % 1 % Neutrophils # 4.1 (1.3-7.7) k/uL Lymphocytes # 2.1 (1.0-4.8) k/uL Monocytes # 0.4 (0-1.0) k/uL Eosinophils # 0.3 (0-0.7) k/uL Basophils # 0.0 (0-0.2) k/uL PT 9.8 (9.0-12.0) sec INR 0.9 (<1.2) APTT 23.3 (22.0-30.0) sec Sodium 138 (137-145) mmol/L Potassium 4.3 (3.5-5.1) mmol/L Chloride 105 (98-107) mmol/L Carbon Dioxide 26 (22-30) mmol/L Anion Gap 7 mmol/L BUN 16 (7-17) mg/dL Creatinine 0.79 (0.52-1.04) mg/dL Est GFR (CKD-EPI)AfAm 84 (>60 ml/min/1.73 sqM) Est GFR (CKD-EPI)NonAf 73 (>60 ml/min/1.73 sqM) Glucose 112 H (74-99) mg/dL Calcium 9.4 (8.4-10.2) mg/dL Magnesium 2.0 (1.6-2.3) mg/dL Total Bilirubin 0.8 (0.2-1.3) mg/dL AST 23 (14-36) U/L ALT 16 (4-34) U/L Alkaline Phosphatase 66 (38-126) U/L Troponin I (0.000-0.034) ng/mL Total Protein 6.9 (6.3-8.2) g/dL Albumin 4.2 (3.5-5.0) g/dL 07/11/20 Range/Units 10:10 WBC (3.8-10.6) k/uL RBC (3.80-5.40) m/uL Hgb (11.4-16.0) gm/dL Hct (34.0-46.0) % MCV (80.0-100.0) fL MCH (25.0-35.0) pg MCHC (31.0-37.0) g/dL RDW (11.5-15.5) % Plt Count (150-450) k/uL Neutrophils % % Lymphocytes % % Monocytes % % Eosinophils % % Basophils % % Neutrophils # (1.3-7.7) k/uL Lymphocytes # (1.0-4.8) k/uL Monocytes # (0-1.0) k/uL Eosinophils # (0-0.7) k/uL Basophils # (0-0.2) k/uL PT (9.0-12.0) sec INR (<1.2) APTT (22.0-30.0) sec Sodium (137-145) mmol/L Potassium (3.5-5.1) mmol/L Chloride (98-107) mmol/L Carbon Dioxide (22-30) mmol/L Anion Gap mmol/L BUN (7-17) mg/dL Creatinine (0.52-1.04) mg/dL Est GFR (CKD-EPI)AfAm (>60 ml/min/1.73 sqM) Est GFR (CKD-EPI)NonAf (>60 ml/min/1.73 sqM) Glucose (74-99) mg/dL Calcium (8.4-10.2) mg/dL Magnesium (1.6-2.3) mg/dL Total Bilirubin (0.2-1.3) mg/dL AST (14-36) U/L ALT (4-34) U/L Alkaline Phosphatase (38-126) U/L Troponin I <0.012 (0.000-0.034) ng/mL Total Protein (6.3-8.2) g/dL Albumin (3.5-5.0) g/dL - Radiology Data Radiology results: image reviewed (Chest x-ray shows mild hyperinflation, no acute process) Disposition Clinical Impression: Chest pain Disposition: ADMITTED IP TO THIS HOSP Is patient prescribed a controlled substance at d/c from ED?: No Referrals: Chase Almonte MD [Primary Care Provider] - 1-2 days Decision Time: 10:48
[2020-07-11 10:19] LABS: Basophils % (A) 1 %; Eosinophils # (A) 0.3 k/uL (0-0.7); Eosinophils % (A) 4 %; HCT 41.3 % (34.0-46.0); HGB 13.3 gm/dL (11.4-16.0); Lymphocytes # (A) 2.1 k/uL (1.0-4.8); Lymphocytes % (A) 30 %; MCH 29.1 pg (25.0-35.0); MCHC 32.1 g/dL (31.0-37.0); MCV 90.8 fL (80.0-100.0); Mean Platelet Volume 7.5; Monocytes # (A) 0.4 k/uL (0-1.0); Monocytes % (A) 5 %; Neutrophils # (A) 4.1 k/uL (1.3-7.7); Neutrophils % (A) 58 %; Platelet Count 271 k/uL (150-450); RBC 4.55 m/uL (3.80-5.40); RDW 12.7 % (11.5-15.5); WBC 7.1 k/uL (3.8-10.6)
--- NOTE | 2020-07-11 10:22 | XR ---
EXAMINATION TYPE: XR chest 2V DATE OF EXAM: 07/11/2020 COMPARISON: 01/26/2014 HISTORY: 75-year-old female with chest pain TECHNIQUE: PA and lateral views FINDINGS: The cardiomediastinal silhouette, aorta, and pulmonary vasculature are within normal limits. Lungs an d pleural spaces are clear. Some surgical clips at the left axilla. Mild hyperinflation. Interstitial prominence is chronic. IMPRESSION: Chronic changes. Mild hyperinflation may reflect depth of inspiration or underlying emphysema. No acu te process seen.
[2020-07-11 10:27] LABS: Albumin 4.2 g/dL (3.5-5.0); Calcium 9.4 mg/dL (8.4-10.2); Potassium 4.3 mmol/L (3.5-5.1); Total Bilirubin 0.8 mg/dL (0.2-1.3); Total Protein 6.9 g/dL (6.3-8.2)
[2020-07-11 10:33] LABS: INR 0.9 (<1.2); Partial Thromboplastin Time 23.3 sec (22.0-30.0); Prothrombin Time 9.8 sec (9.0-12.0)
[2020-07-11] MEDS ORDERED: NITROGLYCERIN SL TABS 0.4 MG TAB SUBLINGUAL PRN (10:49)
--- NOTE | 2020-07-11 12:55 | P.HPIM ---
History of Present Illness H&P Date: 07/11/20 Chief Complaint: Chest pain Kemi Vaughan, is a 75-year-old female well known to my practice, who presented to [facility] emergency room with a chief complaint of chest pain, patient describes a dull ache on the left side of her sternum, radiating to the back that has been present since Saturday without any change, patient initially thought it was a muscle ache however she became more anxious when pain lasted for several days and she decided to come to emergency room. Patient was evaluated in emergency room, blood pressure on presentation was 177/69, but improved within 1 hour to 124/85 her pulse was 78 respiration 18 temperature 98.1, physical exam did not reveal any significant abnormality, EKG was normal, laboratory data revealed normal CBC and CMP her troponin level was less than 0.012 patient was admitted to telemetry floor serial EKG and cardiac enzymes were ordered cardiology consultation was requested. Patient denies any previous history of cardiac disease, she had a stress test more than 10 years ago that was normal per patient, she never had a cardiac catheterization, patient has no history of hypertension, she has mild hyperl ipidemia, she is not diabetic and she never smoked. She has a history of asthma, history of gastroesophageal reflux disease and history of osteoarthritis. On review of systems patient still complaining of some dull ache in the left side of her sternum radiating to the back, that about 4-5 out of 10, there is no radiation of the pain to the neck or to the left arm there is no diaphoresis and no palpitation , otherwise she denies any complaints there is no fever or chills no headache or dizziness no chest pain no shortness of breath no cough no nausea or vomiting no abdominal pain no diarrhea no blood in the stools no burning with urination no frequency or urgency no hematuria. Past Medical History Past Medical History: Asthma, Cancer, COPD, Osteoarthritis (OA) Additional Past Medical History / Comment(s): BREAST CANCER LEFT. ALLERGIES History of Any Multi-Drug Resistant Organisms: None Reported Past Surgical History: Appendectomy, Breast Surgery, Tonsillectomy Additional Past Surgical History / Comment(s): LEFT LUMPECTOMY. SINUS SURGERY. Past Anesthesia/Blood Transfusion Reactions: No Reported Reaction Past Psychological History: No Psychological Hx Reported Smoking Status: Never smoker Past Alcohol Use History: Rare Past Drug Use History: None Reported Medications and Allergies Home Medications Medication Instructions Recorded Confirmed Type Acetaminophen [Tylenol] 325 mg PO HS PRN 11/17/15 12/14/17 History Aspirin [Adult Low Dose Aspirin EC] 162 mg PO DAILY 11/17/15 12/14/17 History Budesonide [Pulmicort] 0.25 mg INHALATION RT-DAILY 11/17/15 12/14/17 History Famotidine 40 mg PO HS 11/17/15 12/14/17 History Loratadine [Claritin] 10 mg PO QAM 11/17/15 12/14/17 History Multivitamins, Thera [Multivitamin 1 tab PO DAILY 11/17/15 12/14/17 History (formulary)] Zafirlukast [Accolate] 20 mg PO QAM 11/17/15 12/14/17 History diphenhydrAMINE [Benadryl] 25 mg PO HS PRN 11/17/15 12/14/17 History Calcium Carbonate/Vitamin D3 1 tab PO DAILY 12/14/17 12/14/17 History [Calcium 500-Vit D3 200 Tablet] Allergies Allergy/AdvReac Type Severity Reaction Status Date / Time egg Allergy Rash/Hives Verified 07/11/20 09:52 naproxen Allergy Rash/Hives. Verified 07/11/20 09:52 SNYCOPE. VOMITING. peanut Allergy Rash/Hives Verified 07/11/20 09:52 Penicillins Allergy Rash/Hives Verified 07/11/20 09:52 strawberry Allergy Rash/Hives Verified 07/11/20 09:52 tomato Allergy Rash/Hives Verified 07/11/20 09:52 Physical Exam Vitals: Vital Signs Temp Pulse Resp BP Pulse Ox 07/11/20 12:07 69 18 114/72 95 07/11/20 10:46 69 18 124/85 96 07/11/20 09:48 98.1 F 78 18 177/69 96 Intake and Output 07/10/20 07/11/20 07/11/20 22:59 06:59 14:59 Other: Weight 66.678 kg In general patient is alert and oriented 3 in no apparent distress HEENT head normocephalic and atraumatic Neck is supple no JVD no goiter no lymphadenopathy no carotid bruit Chest exam reveals clear respiratory sounds no crackles no wheezing Cardiac exam reveals regular heart sounds S1 and S2 no gallops no murmurs Abdomen is soft nontender no organomegaly with normal bowel sounds Extremity exam reveals no edema no cyanosis or clubbing Neurological examination reveals no gross focal deficit Results CBC & Chem 7: 07/11/20 10:10 07/11/20 10:10 Labs: Abnormal Lab Results - Last 24 Hours (Table) 07/11/20 Range/Units 10:10 Glucose 112 H (74-99) mg/dL Assessment and Plan Plan: 1. Chest pain lasting since Saturday, patient is admitted to telemetry floor serial EKG and cardiac enzymes were ordered, cardiology consultation was requested. 2. Underlying history of asthma stable no evidence of acute exacerbation at this time 3. Underlying history of gastroesophageal reflux disease maintained on famotidine continue 4. Underlying history of osteoarthritis At this time patient is admitted to telemetry floor with cardiac monitoring awaiting serial EKG and cardiac enzymes awaiting cardiology input Will follow closely
[2020-07-11] MEDS: NITROGLYCERIN OINT 1 INCH/GM PACKET TOPICAL SCH ×3 (13:07→21:53)
[2020-07-11 17:04] VITALS: RESP 16
[2020-07-11] MEDS ORDERED: ACETAMINOPHEN TAB 500 MG TAB PO PRN (20:19)
[2020-07-12 03:00] LABS: Cholesterol 234 mg/dL (<200); HDL Cholesterol 62 mg/dL (40-60); LDL Cholesterol,Calculated 148 mg/dL (0-99); Triglycerides 119 mg/dL (<150)
[2020-07-12] MEDS: NITROGLYCERIN OINT 1 INCH/GM PACKET TOPICAL SCH (05:17)
[2020-07-12 08:42] VITALS: BP 151/81; PULSE 72; TEMP 97.8
[2020-07-12] MEDS ORDERED: ASPIRIN 325 MG TAB PO SCH (09:00)
--- NOTE | 2020-07-12 10:06 | P.CRDCN ---
History of Present Illness History of present illness: HISTORY OF PRESENTING ILLNESS This is a pleasant 75-year-old female past medical history significant for breast cancer, asthma and arthritis. 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 We have been asked to see in consultation for chest pain. She presented to the hospital with symptoms of pressure in the chest radiating through to the base of her left scapula and started Saturday. Her symptoms since that time have been constant and stable. She denies any worsening chest pressure but also has had no relief. Her pain is manageable intolerable however the persistent nature prompted her to come to the hospital for further evaluation. She does suffer from asthma and ALLERGIES. She follows closely with an ENT. One time throughout the course of the weekend she noticed the pain is exacerbated when she took in a deep breath and coughed however typically when she has exacerbations of asthma it is on both sides not just unilateral. She is quite active physically with walking and gardening. She denies exertional chest discomfort or shortness of breath. DIAGNOSTICS EKG reveals sinus mechanism with no acute ST or T wave abnormalities noted. Chest xray negative for an acute cardiopulmonary process with evidence of underlying emphysema. Laboratory reviewed, CBC unremarkable, sodium 138, potassium 4.3, creatinine 0.79, cardiac enzymes negative 3, LDL 148 and HDL 62. Current cardiac medications include aspirin 81 mg daily. REVIEW OF SYSTEMS At the time of my exam: CONSTITUTIONAL: Denies fever or chills. CARDIOVASCULAR: Denies chest pain, shortness of breath, orthopnea, PND or palpitations. RESPIRATORY: Denies cough. GASTROINTESTINAL: Denies abdominal pain, diarrhea, constipation, nausea or v omiting. MUSCULOSKELETAL: Denies myalgias. NEUROLOGIC: Denies numbness, tingling or weakness. ENDOCRINE: Denies fatigue, weight change, polydipsia or polyurina. GENITOURINARY: Denies burning, hematuria or urgency with micturation. HEMATOLOGIC: Denies history of anemia or bleeding. PHYSICAL EXAMINATION Blood pressure 155/76 heart rate 60 afebrile and maintaining oxygen saturation on room air. CONSTITUTIONAL: No apparent distress. HEENT: Head is normocephalic. Pupils are equal, round. Sclerae anicteric. Mucous membranes of the mouth are moist. No JVD. No carotid bruit. CHEST EXAMINATION: Lungs are clear to auscultation. No chest wall tenderness is noted on palpation or with deep breathing. HEART EXAMINATION: Regular rate and rhythm. S1, S2 heard. No murmurs, gallops or rub. ABDOMEN: Soft, nontender. Positive bowel sounds. EXTREMITIES: 2+ peripheral pulses, no lower extremity edema and no calf tenderness. NEUROLOGIC EXAMINATION: Patient is awake, alert and oriented x3. ASSESSMENT Pain, atypical for angina. An acute coronary event has been ruled out Dyslipidemia Asthma PLAN An acute coronary event has been ruled out. Perform stress echocardiogram to assess for stress induced ischemia. Pain is atypical for angina, consider possible muscular strain. Initiate atorvastatin 40 mg daily for lowering of LDL cholesterol, target goal less than 100. If stress test is normal she is stable for discharge. Thank you kindly for this consultation. Nurse Practitioner note has been reviewed, I agree with a documented findings and plan of care. Patient was seen and examined. Past Medical History Past Medical History: Asthma, Cancer, COPD, Osteoarthritis (OA) Additional Past Medical History / Comment(s): BREAST CANCER LEFT. ALLERGIES History of Any Multi-Drug Resistant Organisms: None Reported Past Surgical History: Appendectomy, Breast Surgery, Tonsillectomy Additional Past Surgical History / Comment(s): LEFT LUMPECTOMY. SINUS SURGERY. Past Anesthesia/Blood Transfusion Reactions: No Reported Reaction Past Psychological History: No Psychological Hx Reported Smoking Status: Never smoker Past Alcohol Use History: Rare Past Drug Use History: None Reported Medications and Allergies Home Medications Medication Instructions Recorded Confirmed Type Acetaminophen [Tylenol] 325 mg PO HS PRN 11/17/15 07/11/20 History Aspirin [Adult Low Dose Aspirin EC] 81 mg PO DAILY 11/17/15 07/11/20 History Famotidine 40 mg PO HS 11/17/15 07/11/20 History Loratadine [Claritin] 10 mg PO QAM 11/17/15 07/11/20 History Multivitamins, Thera [Multivitamin 1 tab PO DAILY 11/17/15 07/11/20 History (formulary)] Zafirlukast [Accolate] 20 mg PO QAM 11/17/15 07/11/20 History diphenhydrAMINE [Benadryl] 25 mg PO HS PRN 11/17/15 07/11/20 History Calcium Carbonate/Vitamin D3 1 tab PO DAILY 12/14/17 07/11/20 History [Calcium 500-Vit D3 200 Tablet] Budesonide [Pulmicort Flexhaler] 1 puff INHALATION RT-DAILY 07/11/20 07/11/20 History Allergies Allergy/AdvReac Type Severity Reaction Status Date / Time egg Allergy Rash/Hives Verified 07/11/20 15:04 naproxen Allergy Rash/Hives. Verified 07/11/20 15:04 SNYCOPE. VOMITING. peanut Allergy Rash/Hives Verified 07/11/20 15:04 Penicillins Allergy Rash/Hives Verified 07/11/20 15:04 strawberry Allergy Rash/Hives Verified 07/11/20 15:04 tomato Allergy Rash/Hives Verified 07/11/20 15:04 Physical Exam Vitals: Vital Signs Temp Pulse Pulse Resp BP BP Pulse Ox 07/12/20 03:23 97.5 F L 60 155/76 98 07/12/20 03:20 60 07/11/20 19:39 97.7 F 71 130/71 97 07/11/20 19:35 71 07/11/20 15:00 98 F 60 16 128/73 98 07/11/20 12:44 98.1 F 79 18 137/84 95 07/11/20 12:07 69 18 114/72 95 07/11/20 11:30 97.9 F 68 16 110/66 97 07/11/20 10:46 69 18 124/85 96 07/11/20 09:48 98.1 F 78 18 177/69 96 Intake and Output 07/11/20 07/12/20 07/12/20 22:59 06:59 14:59 Intake Total 550 0 Output Total 0 0 Balance 550 0 Intake: Oral 550 0 Output: Urine 0 0 Other: Voiding Method Toilet Toilet # Voids 0 0 Results 07/11/20 10:10 07/11/20 10:10 Cardiac Enzymes 07/11/20 07/11/20 07/11/20 Range/Units 10:10 10:10 13:04 AST 23 (14-36) U/L Troponin I <0.012 <0.012 (0.000-0.034) ng/mL 07/11/20 Range/Units 15:41 AST (14-36) U/L Troponin I <0.012 (0.000-0.034) ng/mL Coagulation 07/11/20 Range/Units 10:10 PT 9.8 (9.0-12.0) sec APTT 23.3 (22.0-30.0) sec Lipids 07/11/20 Range/Units 10:10 Triglycerides 119 (<150) mg/dL Cholesterol 234 H (<200) mg/dL HDL Cholesterol 62 H (40-60) mg/dL CBC 07/11/20 Range/Units 10:10 WBC 7.1 (3.8-10.6) k/uL RBC 4.55 (3.80-5.40) m/uL Hgb 13.3 (11.4-16.0) gm/dL Hct 41.3 (34.0-46.0) % Plt Count 271 (150-450) k/uL Comprehensive Metabolic Panel 07/11/20 Range/Units 10:10 Sodium 138 (137-145) mmol/L Potassium 4.3 (3.5-5.1) mmol/L Chloride 105 (98-107) mmol/L Carbon Dioxide 26 (22-30) mmol/L BUN 16 (7-17) mg/dL Creatinine 0.79 (0.52-1.04) mg/dL Glucose 112 H (74-99) mg/dL Calcium 9.4 (8.4-10.2) mg/dL AST 23 (14-36) U/L ALT 16 (4-34) U/L Alkaline Phosphatase 66 (38-126) U/L Total Protein 6.9 (6.3-8.2) g/dL Albumin 4.2 (3.5-5.0) g/dL Current Medications Generic Name Dose Route Start Last Admin Trade Name Yanira PRN Reason Stop Dose Admin Acetaminophen 500 mg 07/11/20 20:19 07/11/20 20:39 Tylenol Tab PO 500 mg Q6HR PRN Administration Fever and/ or Pain Aspirin 325 mg 07/12/20 09:00 07/12/20 08:05 Aspirin PO 325 mg DAILY [facility] Administration Nitroglycerin 0.4 mg 07/11/20 10:49 Nitrostat SUBLINGUAL Q5M PRN Chest Pain Nitroglycerin 0.5 inch 07/11/20 12:00 07/12/20 05:17 Nitro-Bid Oint TOPICAL 0.5 inch Q6HR ROSA Administration Intake and Output 07/11/20 07/12/20 07/12/20 22:59 06:59 14:59 Intake Total 550 0 Output Total 0 0 Balance 550 0 Intake: Oral 550 0 Output: Urine 0 0 Other: Voiding Method Toilet Toilet # Voids 0 0 07/11/20 10:10 07/11/20 10:10
[2020-07-12] MEDS ORDERED: ATORVASTATIN 40 MG TAB PO SCH (10:15)
--- NOTE | 2020-07-12 12:05 | P.STRESS ---
- Stress Test Note Stress Test Results/Findings: Exam Performed: stress echo exercise Exam Date: 07/12/20 Reason for Exam: CHEST PAIN Height: 5 ft Weight: 66.68 kg Protocol: EXERCISE STRESS ECJP Stage: III Duration of Exercise: 9:08 Resting Heart Rate: 63 Resting Blood Pressure: 132/60 Maximum Achieved Heart Rate: 133 Maximum Achieved Blood Pressure: 185/74 85% PMHR: 122 100% PMHR: 143 METS: 10.5 Technologist Comment: Stress Test Results/Findings: This is a 75-year-old female with history of hypercholesteremia, family history of ischemic heart disease being evaluated for symptoms of chest pain. Stress data Baseline EKG showed sinus rhythm with normal NE interval and QRS duration. Blood pressure at rest is 130/60 with pulse rate of 63. Patient walked on the Scottie protocol for 9 minutes achieving a maximum heart rate of 133 with a blood pressure 182/66. EKGs taken during and after the exercise did not reveal significant changes from the baseline. Patient did not experience any chest pain. Echo data: Baseline echo images showed normal wall motion and thickening. Exercise echo images showed augmentation of wall motion and thickening in all the segments. Final impression: #1. Negative stress test #2. Negative stress echo
--- NOTE | 2020-07-12 14:40 | ECHOS ---
Stress Test Results/Findings: Exam Performed: stress echo exercise Exam Date: 07/12/20 Reason for Exam: CHEST PAIN Height: 5 ft Weight: 66.68 kg Protocol: EXERCISE STRESS ECJP Stage: III Duration of Exercise: 9:08 Resting Heart Rate: 63 Resting Blood Pressure: 132/60 Maximum Achieved Heart Rate: 133 Maximum Achieved Blood Pressure: 185/74 85% PMHR: 122 100% PMHR: 143 METS: 10.5 Technologist Comment: Stress Test Results/Findings: This is a 75-year-old female with history of hypercholesteremia, family history of ischemic heart disease being evaluated for symptoms of chest pain. Stress data Baseline EKG showed sinus rhythm with normal DE interval and QRS duration. Blood pressure at rest is 130/60 with pulse rate of 63. Patient walked on the Scottie protocol for 9 minutes achieving a maximum heart rate of 133 with a blood pressure 182/66. EKGs taken during and after the exercise did not reveal significant changes from the baseline. Patient did not experience any chest pain. Echo data: Baseline echo images showed normal wall motion and thickening. Exercise echo images showed augmentation of wall motion and thickening in all the segments. Final impression: #1. Negative stress test #2. Negative stress echo MTDD
[2020-07-13] MEDS ORDERED: ASPIRIN 81 MG PO SCH (09:00)
== END 2020-07-12 14:29 | disposition home or self-care (01) ==
LOC: EC 09:46 → 3NCARDOBS 10:49
PROVIDERS: ADMIT Internal Medicine; ATTEND Internal Medicine
DX: R07.89 Other chest pain (principal); J45.909 Unspecified asthma, uncomplicated; J43.9 Emphysema, unspecified; E78.00 Pure hypercholesterolemia, unspecified; E78.5 Hyperlipidemia, unspecified; M19.90 Unspecified osteoarthritis, unspecified site; K21.9 Gastro-esophageal reflux disease without esophagitis; Z79.82 Long term (current) use of aspirin; Z79.51 Long term (current) use of inhaled steroids; Z79.899 Other long term (current) drug therapy; Z88.6 Allergy status to analgesic agent; Z91.012 Allergy to eggs; Z91.010 Allergy to peanuts; Z88.0 Allergy status to penicillin; Z91.018 Allergy to other foods; Z85.3 Personal history of malignant neoplasm of breast; Z90.49 Acquired absence of other specified parts of digestive tract; Z98.890 Other specified postprocedural states; Z82.49 Family history of ischemic heart disease and other diseases of the circulatory system
CPT/HCPCS: 93005 ×2; 99285; 36415; 93351; 80061; 80053; 83735; 84484; 85025; 85610; 85730; 71046; G0378 ×2

== ENCOUNTER → 2024-04-22 | Outpatient (CLI) | payer MEDICARE ==
--- NOTE | 2024-04-25 23:16 | CT ---
EXAMINATION TYPE: CT sinus wo con DATE OF EXAM: 04/22/2024 COMPARISON: None HISTORY: chronic sinusitis CT DLP: 252.90 mGycm CONTRAST: 0 mL of Isovue 300 The paranasal sinuses are examined in the axial plane at 2 mm thick sections. Reconstructed images i n the coronal plane were obtained. There is dental amalgam scatter artifact Mucosal thickening is present within the lateral right maxillary sinus. Left maxillary sinus appears clear. There has been prior ethmoidectomies. Some mucosal thickening is within the postsurgical spac e greater on the left extending towards the frontal sinus. Left frontal sinus has mucosal thickening . Minimal right frontal sinus mucosal thickening is also present. The sphenoid sinuses appear clear. Mastoid air cells are clear. The septum is evaluated. There is septal deviation to the right. There is been prior bilateral uncinectomies. IMPRESSION: 1. Chronic sinusitis post surgical sinus study.
== END | disposition home or self-care (01) ==
LOC: RADCTMAIN 10:17
PROVIDERS: ATTEND Internal Medicine
DX: J32.9 Chronic sinusitis, unspecified (principal)
CPT/HCPCS: 70486

== ENCOUNTER → 2024-05-27 | Outpatient (CLI) | payer MEDICARE ==
--- NOTE | 2024-05-28 11:42 | MR ---
EXAMINATION TYPE: MR brain/orbits wo/w con DATE OF EXAM: 05/27/2024 2:44 PM COMPARISON: NONE HISTORY: Double vision, Arm tingling, hand falling asleep, Hx Breast cancer Sep 2011 CONTRAST: Patient received 7 mL intravenous Gadavist gadolinium contrast. Resolution imaging was als o obtained of the orbits. Multiplanar and multispin-echo imaging of the brain was performed . Pre and post contrast enhanced i mages are obtained. The ventricles, basal cisterns and sulci overlying the cerebral convexities are mildly enlarged. There is evidence of mild periventricular white matter ischemic demyelination. Remote deep white matter insults are also noted. No acute edema is seen on diffusion weighted imaging. There is no evidence for midline shift or mass effect. Acute intracranial hemorrhage or extra-axial collection is not evident. No enhancing lesions are seen. There is mild mucosal thickening frontal and ethmoid air cells. Small mucous retention cyst or polyp at the base of the right maxillary sinus. Orbits: Globes are symmetric bilaterally. Optic nerves are symmetric and free of thickening or enhanc ement. No masses are present within the intra or extraconal tissues. Extraocular musculature appears symmetric without evidence for abnormal thickening. No evidence for exophthalmos. Lacrimal ducts are free of mass lesion. IMPRESSION: 1. Age-related atrophic and chronic small vessel ischemic change. No acute intracranial process at this time. 2. No enhancing lesions are seen. 3. No distinct abnormality of the orbits.
== END | disposition home or self-care (01) ==
LOC: RADMRIMAIN 13:38
PROVIDERS: ATTEND Psychiatry & Neurology Neurology
DX: H53.2 Diplopia (principal); I67.82 Cerebral ischemia; Z85.3 Personal history of malignant neoplasm of breast
CPT/HCPCS: 70543; 70553; A9585

== ENCOUNTER → 2024-08-18 | Outpatient (CLI) | payer MEDICARE ==
--- NOTE | 2024-08-19 09:24 | CA ---
Transthoracic Echo Report Name: Kemi Vaughan Age: 79 Gender: F : 1945 Exam Date: 08/18/2024 14:30 Exam Location: [facility] Ht (in): 60 Wt (lb): 155 Ordering Physician: Chase Almonte MD Attending/Referring Phys: Marketing Technology Coordinator Galina Geller RDCS Procedure CPT: Indications: H53.2 DIPLOPIA I10 HTN Cardiac Hx: Technical Quality: Good Contrast 1: Total Dose (mL): Contrast 2: Total Dose (mL): MEASUREMENTS (Male / Female) Normal Values 2D ECHO LV Diastolic Diameter PLAX 4.5 cm 4.2 - 5.9 / 3.9 - 5.3 cm LV Systolic Diameter PLAX 3.1 cm IVS Diastolic Thickness 1.3 cm 0.6 - 1.0 / 0.6 - 0.9 cm LVPW Diastolic Thickness 1.1 cm 0.6 - 1.0 / 0.6 - 0.9 cm LV Relative Wall Thickness 0.5 RV Internal Dim ED PLAX 3.1 cm LA Systolic Diameter LX 3.0 cm 3.0 - 4.0 / 2.7 - 3.8 cm LV Diastolic Volume MOD 4C 89.7 cm??? LV Systolic Volume MOD 4C 36.3 cm??? LV Ejection Fraction MOD 4C 59.5 % LV Cardiac Index MOD 4C 1950.5 cm???/min???m??? LV Diastolic Length 4C 7.3 cm LV Systolic Length 4C 5.9 cm LV Diastolic Volume MOD 2C 73.0 cm??? LV Systolic Volume MOD 2C 24.6 cm??? LV Ejection Fraction MOD 2C 66.3 % LV Cardiac Index MOD 2C 1767.3 cm???/min???m??? LV Diastolic Length 2C 7.5 cm LV Systolic Length 2C 6.0 cm LA Volume 35.7 cm??? 18 - 58 / 22 - 52 cm??? LA Volume Index 20.4 cm???/m??? 16 - 28 cm???/m??? M-MODE Aortic Root Diameter MM 3.4 cm AV Cusp Separation MM 2.0 cm DOPPLER AV Peak Velocity 192.7 cm/s AV Peak Gradient 14.8 mmHg AV Mean Velocity 132.1 cm/s AV Mean Gradient 7.9 mmHg AV Velocity Time Integral 45.7 cm LVOT Peak Velocity 98.0 cm/s LVOT Peak Gradient 3.8 mmHg LVOT Velocity Time Integral 26.0 cm MV Area PHT 3.1 cm??? Mitral E Point Velocity 75.6 cm/s Mitral A Point Velocity 96.6 cm/s Mitral E to A Ratio 0.8 MV Deceleration Time 248.4 ms TR Peak Velocity 245.9 cm/s TR Peak Gradient 24.2 mmHg Right Ventricular Systolic Press 28.9 mmHg FINDINGS Left Ventricle Left ventricular ejection fraction is estimated at 60-65.%. Left ventricular cavity size normal. Moderately increased septal wall thickness. Mildly increased posterior wall thickness. Normal left ventricular wall motion. Right Ventricle Normal right ventricular size and function. Right ventricular systolic pressure within normal limits. Right Atrium Normal right atrial size. No right atrial thrombus or mass seen. Left Atrium Normal left atrial size. No left atrial thrombus or mass present. Mitral Valve Structurally normal mitral valve. Trace mitral regurgitation. Aortic Valve Trileaflet aortic valve. Aortic valve sclerosis. Thickened aortic valve without stenosis. Tricuspid Valve Structurally normal tricuspid valve. Mild tricuspid regurgitation. Pulmonic Valve Structurally normal pulmonic valve. Trace to mild pulmonic regurgitation. Pericardium No pericardial or pleural effusion. Aorta Normal size aortic root and proximal ascending aorta. CONCLUSIONS Left ventricular ejection fraction 60-65% Moderately increased left ventricular wall thickness Trace mitral regurgitation Mild tricuspid regurgitation No pericardial effusion Previewed by: Dr. Juan Manuel Rowe DO (Electronically Signed) Final Date: 19 August 2024 09:23
--- NOTE | 2024-08-20 11:23 | US ---
EXAMINATION TYPE: US carotid duplex BILAT DATE OF EXAM: 08/18/2024 COMPARISON: NONE CLINICAL INDICATION: Female, 79 years old with history of H532 DOUBLE VISION; Double vision per order , has gone away per patient. Hx hyperlipidemia. TECHNIQUE: Grayscale, color Doppler and spectral Doppler evaluation of the bilateral carotid systems and vertebral arteries. Indirect Doppler criteria was utilized. FINDINGS: EXAM MEASUREMENTS: RIGHT: Peak Systolic Velocity (PSV) cm/sec ----- Right CCA: 76.6 ----- Right ICA: 145 ----- Right ECA: 41.6 ICA/CCA ratio: 1.89 RIGHT: End Diastole cm/sec ----- Right CCA: 17.8 ----- Right ICA: 34.0 ----- Right ECA: 0.42 LEFT: Peak Systolic Velocity (PSV) cm/sec ----- Left CCA: 69.5 ----- Left ICA: 104 ----- Left ECA: 41.6 ICA/CCA ratio: 1.50 LEFT: End Diastole cm/sec ----- Left CCA: 16.0 ----- Left ICA: 21.4 ----- Left ECA: 5.9 VERTEBRALS (direction of flow): Right Vertebral: Antegrade Left Vertebral: Antegrade Rhythm: Normal FORM GRADER NOTES: Limited evaluation due to high bifurcations. *Tortuous ICAs. Elevated velocity right ICA. IMPRESSION: Limited evaluation. Right: Less than 50% stenosis involving the origin of the right internal carotid artery. Left: No ultrasound evidence for hemodynamically significant stenosis of the left internal carotid ar wilma. Criteria for Assigning % of Stenosis / Diameter reduction (Estimation based on the indirect measurements of the internal carotid artery velocities (ICA PSV). 1. Normal (no stenosis)=ICA PSV < 125 cm/s: ratio < 2.0: ICA EDV<40 cm/s. 2. Less than 50% stenosis=ICA PSV < 125 cm/s: ratio < 2.0: ICA EDV<40 cm/s. 3. 50 to 69% stenosis=ICA PSV of 125 to 230 cm/s: ration 2.0 ? 4.0: ICA EDV 40-100 cm/s. 4. Greater than 70% stenosis to near occlusion= ICA PSV > 230 cm/s: ratio > 4.0: ICA EDV > 100 cm/s. 5. Near occlusion= ICA PSV velocities may be low or undetectable: variable ratio and ICA EDV. 6. Total occlusion=unable to detect flow. [facility], , 08/20/2024 11:21 AM
== END ==
LOC: RADECHMAIN 14:14
PROVIDERS: ATTEND Internal Medicine
DX: H53.2 Diplopia
CPT/HCPCS: 93306; 93880

== ENCOUNTER 2025-02-10 10:57 | Day surgery (SDC) | payer MEDICARE ==
[2025-02-08 13:07] VITALS: BMI 28.5
[2025-02-10] MEDS: IV FLUID CONTINUATION 1,000 ML IV ONE (11:28)
[2025-02-10 11:30] VITALS: TEMP 97.4
[2025-02-10] MEDS: LACTATED RINGERS 1,000 ML IV SCH (11:32)
[2025-02-10] MEDS ORDERED: PROPOFOL 10 MG/ML 20 ML VIAL IV ONE (12:22)
[2025-02-10] MEDS ORDERED: LIDOCAINE 1% INJ 10MG/ML (20 ML MDV) ONE (12:22)
--- NOTE | 2025-02-10 12:32 | P.PCN ---
Date of Procedure: 02/10/25 Procedure(s) Performed: BRIEF HISTORY: Patient is a 79-year-old, pleasant, white female scheduled for an upper endoscopy as a part evaluation of intermittent dysphagia to solids for the last few months duration.. She denies any heartburn. PROCEDURE PERFORMED: Esophagogastroduodenoscopy with dilation. PREOPERATIVE DIAGNOSIS: Intermittent dysphagia to solids. IV sedation per anesthesia. PROCEDURE: After informed consent was obtained, the patient was brought into the endoscopy unit. IV sedation was administered by Anesthesia under continuous monitoring. Initially the Olympus GIF-140 video endoscope was inserted into the mouth. Esophagus intubated without any difficulty. It was gradually advanced into the stomach and duodenum and carefully examined. The bulb and the second part of the duodenum appeared normal. The scope at this time was withdrawn to the stomach, adequately insufflated with air, and upon careful examination, mucosa of the antrum, body, cardia and the fundus appeared normal. The scope was then withdrawn into the esophagus. Small hiatal hernia noted. The GE junction was located at 39 cm from the incisors. It was a distal esophageal Schatzki's ring identified that was dilated using 18 to 20 mm TTS balloon for 60 seconds. Also there were 2 superficial erosions in the distal esophagus consistent with LA grade B reflux esophagitis. Rest of the esophagus appeared normal and the patient tolerated the procedure well. IMPRESSION: 1. Distal esophageal Schatzki's ring status post balloon dilation using 18 to 20 mm TTS balloon. 2. Small hiatal hernia 3. 2 superficial erosions in the distal esophagus consistent with LA grade B reflux esophagitis. RECOMMENDATIONS: The findings of this examination were discussed with the patient as well as her family. She was advised to be on a clear liquid diet. Start on omeprazole 20 mg daily. Follow-up in the office in 2 weeks.
[2025-02-10 12:56] VITALS: BP 146/68; PULSE 76; RESP 18
== END 2025-02-10 13:47 | disposition home or self-care (01) ==
LOC: ORWHC2ENDO 10:57
PROVIDERS: ATTEND Internal Medicine Gastroenterology
DX: R13.19 Other dysphagia (principal); K22.2 Esophageal obstruction; K44.9 Diaphragmatic hernia without obstruction or gangrene; K21.00 Gastro-esophageal reflux disease with esophagitis, without bleeding
CPT/HCPCS: 43249; J2003; J2704; C1726